=== PATIENT | male | born 1960 | race Caucasian/White ===

== ENCOUNTER 2019-09-16 10:12 | Emergency (ER) | payer MEDICAID, OTHER ==
[~2019-09-16 10:12] MED LIST: Iopamidol 370 76% 100 ML VIAL ONE
[2019-09-16 11:02] LABS: Prothrombin Time 12.7 sec (12.0-14.7)
[2019-09-16 11:15] LABS: Band 1 % (5-11); Hemoglobin 13.6 g/dL (14.0-18.0); Lymphocytes 3 % (21-51); MDiff Complete? YES; Mean Corpuscular HGB CONC 31.9 g/dL (32.0-36.0); Mean Corpuscular Hemoglobin 29.5 pg (27.0-31.0); Mean Corpuscular Volume 92.6 fL (78.0-98.0); Mean Platelet Volume 6.9 fL (7.4-10.4); Monocytes 6 % (0-10); Neutrophil 85 % (42-75); Platelet Count 247 thou/uL (130-400); Platelet Morphology Comment Appears Adequate; RBC Distribution Width 12.8 % (11.5-14.5); Reactive Lymphocytes 5 % (0-10); Red Blood Cell (RBC) Count 4.59 mill/uL (4.70-6.10); White Blood Cell (WBC) Count 13.9 thou/uL (4.8-10.8)
[2019-09-16 11:16] LABS: ALT (SGPT) 135 U/L (8-55); AST (SGOT) 224 U/L (5-34); Albumin 3.7 g/dL (3.5-5.0); Alkaline Phosphatase 164 U/L (40-110); Anion Gap 14 mmol/L (10-20); BUN (Urea Nitrogen) 5 mg/dL (8.4-25.7); Bilirubin, Total 1.1 mg/dL (0.2-1.2); Calc. Creatinine Clearance 0 mL/min (70-130); Calcium 8.3 mg/dL (7.8-10.44); Carbon Dioxide 20 mmol/L (22-29); Chloride 109 mmol/L (98-107); Estimated GFR-MDRD Greater than 90; Globulin 3.1 g/dL (2.4-3.5); Glucose 138 mg/dL (70-105); Lipase 413 U/L (8-78); Magnesium 1.8 mg/dL (1.6-2.6); Potassium 4.2 mmol/L (3.5-5.1); Protein, Total 6.8 g/dL (6.0-8.3); Sodium 139 mmol/L (136-145)
[2019-09-16 11:39] LABS: Bilirubin Negative (Negative); Blood, Urine Negative (Negative); Clarity Clear (Clear); Glucose, Urine (Dipstick) Negative (Negative); Leukocyte Trace (Negative); Nitrite Negative (Negative); Protein, Urine (Dipstick) Negative (Neg-Trace); Urobilinogen > or = 8.0 mg/dL (Less than 2)
[2019-09-16 11:42] LABS: Bacteria/HPF Rare-Few HPF (None Seen); RBC/HPF None Seen HPF (0-3); Squamous Epithelial 0-3 HPF (0-3); WBC/HPF 0-3 HPF (0-3)
[2019-09-16] MEDS ORDERED: Dextrose 5% in Water 500 ML ONE (12:21)
[2019-09-16] MEDS ORDERED: Sodium Chloride 0.9% 1,000 ML ONE (12:44)
--- NOTE | 2019-09-16 12:44 | CT ---
ABDOMEN AND PELVIS CT SCAN WITH IV CONTRAST: Date: 09/16/2019 HISTORY: Abdominal pain. FINDINGS: Minimal posterior pleural thickening and subpleural linear changes, probably in part due to positiona l change. The liver appears unremarkable. Multiple gallstones are noted in the gallbladder with some minimal gallbladder wall thickening and pericholecystic fluid or edema. Consider follow-up gallbladde r ultrasound if there is concern for acute cholecystitis. 0.75 cm transverse ventral fat-containing h ernia between the xiphoid and the umbilicus with a very small umbilical fat-containing hernia. Mild d ilatation of the common bile duct up to 0.8 cm. Multiple calcifications within the pancreas, evidence for chronic pancreatitis. There is one rounded calcification which could potentially be in the dista l common duct region. If that is a concern, follow-up nonemergent MRCP might be considered. No renal calculus or acute obstruction. Small bilateral renal cysts. Adrenal glands are unremarkable. Splee n is unremarkable. Normal appearing appendix. No evidence for large or small bowel obstruction. Degen erative disc disease of the lower lumbar spine with multiple areas of up to moderate canal stenosis. IMPRESSION: 1. Cholelithiasis with some minimal gallbladder wall edematous change and thickening. Correlate with gallbladder ultrasound if there is concern for acute cholecystitis. 2. Fat-containing ventral hernia. 3. Small bilateral renal cysts. 4. Mildly dilated common bile duct with multiple pancreatic calcifications, evidence for chronic jerry creatitis. 5. One potential calcification along the course of the common bile duct potentially which could repr esent a distal ductal calculus. 6. Other findings as above. POS: [id number]
== END 2019-09-16 12:55 | disposition short-term general hospital (02) ==
LOC: MADERS 10:12
DX: K80.10 Calculus of gallbladder with chronic cholecystitis without obstruction (principal); F03.90 Unspecified dementia, unspecified severity, without behavioral disturbance, psychotic disturbance, mood disturbance, and anxiety; I67.1 Cerebral aneurysm, nonruptured; Z79.899 Other long term (current) drug therapy
CPT/HCPCS: 74177; 80053; 81003; 81015; 83605; 83690; 83735; 84484; 85025; 85610; 93005; 96365; J3370; J7050; J7070; Q9967